=== PATIENT | female | born 1930 | race African-American/Black ===

== ENCOUNTER 2019-02-01 12:12 | Emergency (ER) | payer MEDICARE ==
[~2019-02-01] VITALS: Ht 165.1 cm; Wt 89.0 kg
[~2019-02-01 12:12] MED LIST: LISI10TA5 MT; NIFE90TA2 MT
[2019-02-01] MEDS ORDERED: BACITRACIN 15GM TUBE TOP ONE (14:00)
[2019-02-01] MEDS ORDERED: BACITRACIN ZINC OINT UDPKT TOP NR (14:15)
[2019-02-01 15:03] VITALS: BP 178/92
== END 2019-02-01 15:20 | disposition home or self-care (01) ==
LOC: ER 12:12
DX: L97.428 Non-pressure chronic ulcer of left heel and midfoot with other specified severity (principal); I10 Essential (primary) hypertension; Z91.018 Allergy to other foods
CPT/HCPCS: 99283